=== PATIENT | female | born 1955 | race Caucasian/White ===

== ENCOUNTER 2018-05-31 12:33 | Outpatient (CLI) | payer BC ==
--- NOTE | 2018-05-31 12:58 | RAD ---
THREE VIEWS LEFT SHOULDER: COMPARISON: None. HISTORY: Left shoulder pain after falling down stairs. FINDINGS: Three views of the left shoulder show no evidence of acute fracture or dislocation. No degenerative changes are seen. The visualized left thorax is unremarkable. IMPRESSION: Unremarkable exam. POS: [facility]
== END 2018-05-31 12:34 | disposition home or self-care (01) ==
LOC: BICRAD 12:33
PROVIDERS: ATTEND Internal Medicine
DX: M25.512 Pain in left shoulder (principal)

== ENCOUNTER 2018-09-04 14:49 | Outpatient (CLI) | payer BC ==
--- NOTE | 2018-09-04 15:54 | RAD ---
Cervical spine 3 views HISTORY: Neck pain. FINDINGS: Vertebral body heights are maintained. Disc space narrowing and minimal degenerative retrol isthesis at the C5-6 level. And C6-7 levels. Cervicothoracic junction is intact. Osteophytosis most pronounced at the lowest 3 levels. No acute fracture, dislocation, or aggressive osseous erosions. IMPRESSION: Osseous degenerative spine.
--- NOTE | 2018-09-04 16:00 | RAD ---
THREE VIEWS RIGHT ANKLE: INDICATION: Pain of right ankle. FINDINGS: There is lateral ankle swelling. Mortise is intact. No fracture or dislocation identified. IMPRESSION: Lateral soft tissue swelling without acute fracture of right ankle. POS: OFF
--- NOTE | 2018-09-04 16:05 | RAD ---
LUMBAR SPINE RADIOGRAPH SERIES 2-3 VIEWS: 09/04/18 INDICATION: Low back pain, with sciatica, right sided. FINDINGS: There is a postoperative fusion spanning L4 and L5 with bilateral pedicle screws and vertical interco nnecting rods as well as interbody cage device. No hardware complication is evident on the two provid ed views. There is accentuation of the lumbar lordosis. Trace spondylolisthesis at L5-S1. There are c alcifications overlying the pelvis bilaterally indicative of phleboliths. IMPRESSION: 1. Postoperative lower lumbar spine. 2. Trace spondylolisthesis of L5-S1 present. POS: OFF
--- NOTE | 2018-09-04 16:08 | RAD ---
THREE VIEWS OF THE THORACIC SPINE: COMPARISON: None. HISTORY: Pain in the thoracic spine. FINDINGS: Three views of the thoracic spine show normal height and alignment of the vertebral bodies without fr acture or subluxation. There is narrowing of the intervertebral disks and moderate osteophytes in th e thoracic spine. IMPRESSION: Degenerative changes of the thoracic spine without acute osseous abnormality. POS: [facility]
== END 2018-09-04 14:50 | disposition home or self-care (01) ==
LOC: SCSRAD 14:49
PROVIDERS: ATTEND Physician Assistant
DX: M25.571 Pain in right ankle and joints of right foot (principal); M54.41 Lumbago with sciatica, right side; M54.6 Pain in thoracic spine; M54.2 Cervicalgia; M47.814 Spondylosis without myelopathy or radiculopathy, thoracic region; M43.17 Spondylolisthesis, lumbosacral region; S82.891A Other fracture of right lower leg, initial encounter for closed fracture; M47.812 Spondylosis without myelopathy or radiculopathy, cervical region; Z98.890 Other specified postprocedural states
CPT/HCPCS: 72040; 72072; 72100; 80048; 83970

== ENCOUNTER 2018-09-25 09:52 | Outpatient (CLI) | payer BC ==
--- NOTE | 2018-09-25 12:03 | ULT ---
BILATERAL RENAL ULTRASOUND: Date: 09/25/18 HISTORY: Chronic renal disease. FINDINGS: The right kidney measures 11.6 cm in length and the left kidney measures 11.1 cm in length. No hydron ephrosis seen on either side. Multiple small echogenic foci in the kidneys bilaterally are either due to vascular calcifications or nonobstructing calculi. The urinary bladder is unremarkable. IMPRESSION: 1. No evidence of high grade obstruction. 2. Vascular calcifications versus nonobstructing calculi in the kidneys. CT stone protocol would be helpful. POS: [facility]
== END 2018-09-25 09:53 | disposition home or self-care (01) ==
LOC: SCSULT 09:52
PROVIDERS: ATTEND Internal Medicine Nephrology
DX: N18.3 Chronic kidney disease, stage 3 (moderate) (principal)
CPT/HCPCS: 76770

== ENCOUNTER 2018-09-27 09:29 | Outpatient (CLI) | payer BC ==
--- NOTE | 2018-09-27 10:25 | BD ---
DEXA BONE DENSITY STUDY: Date: 09/27/18 HISTORY: 53-year-old postmenopausal female for screening for osteoporosis. FINDINGS: Bilateral Hips: BMD (g/cm2) Left Femoral Neck 0.992 T-Score: 1.3 Total Proximal Left Femur 1.084 T-Score: 1.2 Right Femoral Neck 0.9393 T-Score: 0.8 Total Proximal Right Femur 1.050 T-Score: 0.9 IMPRESSION: Normal bone mineral density. POS: [facility]
== END 2018-09-27 09:30 | disposition home or self-care (01) ==
LOC: BICMAMMO 09:29
PROVIDERS: ATTEND Internal Medicine
DX: Z13.820 Encounter for screening for osteoporosis (principal)
CPT/HCPCS: 77080

== ENCOUNTER 2019-01-08 10:23 | Outpatient (CLI) | payer BC | END 2019-01-08 10:24 | disposition home or self-care (01) | LOC: CTENTCT 10:23 | PROVIDERS: ATTEND Specialist | DX: J32.8 Other chronic sinusitis (principal) | CPT/HCPCS: 70486 ==

== ENCOUNTER 2019-01-15 17:40 | Emergency (ER) | payer BC ==
[2019-01-15] MEDS ORDERED: Dexamethasone 10 MG/ML VIAL ONE (18:41)
[2019-01-15] MEDS ORDERED: Morphine 10 MG/ML VIAL ONE (18:41)
== END 2019-01-15 18:50 | disposition home or self-care (01) ==
LOC: SCSER 17:40
DX: M54.41 Lumbago with sciatica, right side (principal)
CPT/HCPCS: 99283; J1100; J2270

== ENCOUNTER 2019-01-20 08:22 | Outpatient (CLI) | payer BC ==
--- NOTE | 2019-01-20 16:16 | NM ---
Radionucleotide parathyroid scan HISTORY: Primary hyperparathyroidism. FINDINGS: Early images show physiologic uptake of radiotracer throughout salivary glands and the thyr oid gland. Delayed images show appropriate washout of radiotracer from the thyroid gland. No residual foci of parathyroid uptake evident. Upper mediastinum was included in the imaging. IMPRESSION: No scintigraphic evidence of parathyroid adenoma.
== END 2019-01-20 08:23 | disposition home or self-care (01) ==
LOC: NM 08:22
PROVIDERS: ATTEND Specialist
DX: E21.0 Primary hyperparathyroidism (principal)
CPT/HCPCS: 78072; A9500

== ENCOUNTER 2019-02-03 11:57 | Outpatient (CLI) | payer BC ==
[~2019-02-03 11:57] MED LIST: Iopamidol 370 76% 100 ML VIAL ONE; Iopamidol 370 76% 50 ML VIAL FS ONE
--- NOTE | 2019-02-03 14:35 | CT ---
PRE AND POSTCONTRAST SOFT TISSUE NECK CT: HISTORY: Primary hyperparathyroidism. COMPARISON: None. CORRELATION: Nuclear medicine parathyroid scan 01/20/2019. TECHNIQUE: An abdomen and pelvic CT is performed with and without intravenous contrast administration. Multisequ ential, multiplanar imaging was performed. FINDINGS: Visualized paranasal sinuses are adequately aerated. Aerodigestive tract is patent. No mucosal abnorm ality. Midline fatty raphae of the tongue is preserved. No obvious masses in the oral cavity. Epiglottis has a normal caliber. Preepiglottic fat is preserved. Symmetric attenuation of the parotid and submandibular glands. Appropriate attenuation of the thyroid gland. No evidence of lymphadenopathy by size criteria. The great vessels of the neck are patent. Cervical spine vertebral body height is maintained. No fracture. Mild degenerative disc disease at th e C5-C6 and C6-C7. Moderate to severe right neural foraminal narrowing at C5-C6 and C6-C7 due to uncovertebral hypertrophy. Evaluation is limited by technique. Effacement of the right fossa of Rosenmuller is nonspecific. Direct visualization is recommended. Upper mediastinum and lung apices are unremarkable. In the right tracheoesophageal groove (C6-C7 disc space level), there is an intrinsically hypodense l esion which does demonstrate enhancement on the postcontrast images, measuring 0.6 cm. A small parathyroid adenoma may be present. Correlation made with recent nuclear medicine imaging does not de monstrate a scintigraphic correlate. Lack of radiotracer localization may be due to the overall small size of the adenoma. IMPRESSION: Possible right parathyroid adenoma without definite scintigraphic uptake. Evaluation is limited by si ze. This possible adenoma is noted at the C6-C7 disc space level. Correlate with parathyroid levels.
== END 2019-02-03 11:58 | disposition home or self-care (01) ==
LOC: CT 11:57
PROVIDERS: ATTEND Specialist
DX: E21.0 Primary hyperparathyroidism (principal); D35.1 Benign neoplasm of parathyroid gland
CPT/HCPCS: 70492; 82565; Q9967

== ENCOUNTER 2019-07-09 03:50 | Observation (INO) | payer BC ==
[2019-07-09] MEDS ORDERED: Nitroglycerin 2% Ointment 1 INCH/1 GM Packet ONE (04:13)
[2019-07-09] MEDS ORDERED: Ondansetron PF 4 MG/2 ML Vial IVP PRN (04:46)
[2019-07-09] MEDS ORDERED: cloNIDine 0.1 MG TAB PO PRN (04:46)
[2019-07-09] MEDS ORDERED: Promethazine HCl 12.5 MG in Sodium Chloride 0.9% 50 ML IVPB PRN (04:46)
[2019-07-09] MEDS ORDERED: hydrALAZINE 20 MG/ML VIAL SLOW IVP PRN (04:46)
[2019-07-09] MEDS ORDERED: Morphine 2 MG/ML SYRINGE SLOW IVP PRN (04:46)
--- NOTE | 2019-07-09 04:55 | PDOC.HHP ---
Hospitalist HPI - History of Present Illness Chest pain History of Present Illness: Patient is a 64 year old female with PMH hyperparathyroidism, hypercalcemia, djd , kidney stones who presents to ED for chest pain which began at 1am and woke patient from sleep, she reports it is a very sharp pain in R upper chest radiating down R arm with radiations to jaw and face, patient reports nitro has not improved but patch was just put on. She has had similar chest pains on and off for last 2 years, saw Dr Webster late 2018 and had a stress test, echo etc and she reports was all normal however she was going to have a heart cath soon due to persistence of chest pain, however has been postponed given recent current events and pandemic. She takes an ASA every day. She has hyperparathyroidism and was to see a surgeon tomorrow about removal of parathyroids. she denies SOB, reports some intermittent pedal edema which is not present, denies stable angina. No fevers or sick contacts, denies other complaints at this time. Hospitalist ROS - Review of Systems Constitutional: denies: fever, chills, sweats, weakness, malaise, other Eyes: denies: pain, vision change, conjunctivae inflammation, eyelid inflammation, redness, other ENT: denies: ear pain, ear discharge, nose pain, nose discharge, nose congestion , mouth pain, mouth swelling, throat pain, throat swelling, other Respiratory: denies: cough, dry, shortness of breath, hemoptysis, SOB with excertion, pleuritic pain, sputum, wheezing, other Cardiovascular: reports: chest pain, edema. denies: palpitations, orthopnea, paroxysmal noc. dyspnea, light headedness, other Gastrointestinal: denies: nausea, vomiting, abdominal pain, diarrhea, constipation, melena, hematochezia, other Genitourinary: denies: dysuria, frequency, incontinence, hematuria, retention, other Musculoskeletal: reports: neck pain, arm pain Skin: denies: rash, lesions, [place], bruising, other Neurological: denies: weakness, numbness, incoordination, change in speech, confusion, seizures, other All other systems reviewed; all pertinent +/- noted in HPI/Subj Hospitalist History - Past Medical History Other Medical History: hyperparathyroidism hypercalcemia djd chest pain recurrent kidney stones - Past Surgical History Other Surgical History: hysterectomy laminectomy and fusion toe surgery - Family History Other Family History: mother with cva, brain aneurysm, htn, breast cancer - Social History Smoking Status: Never smoker Alcohol: reports: None Drugs: reports: none - Exam General Appearance: NAD, awake alert Hospitalist Results - EKG Interpretation EKG: nsr rate 63 pr 214 qtc [address] changes Hospitalist H&P A/P - Plan Plan: Patient is a 64 year old female admitted for: # chest pain # 1st degree avb recurrent chest pain, negative stress test, no St changes on EKG, was to have heart cath by Dr Webster at some point soon due to recurrent chest pain despite negative stress - admit to telemetry obs - npo - consult dr webster - beta cristal, asa, nitropatch, statin - resume home meds once med rec complete # history of hyperparathyroidism, hyperalcemia - see surgeon once medically stable, likely as outpatient - trend BMP
[2019-07-09 05:33] VITALS: BMI 27.2
[2019-07-09] MEDS: Acetaminophen 325 MG TAB PO PRN ×3 (05:36→21:04)
[2019-07-09 05:56] LABS: #Basophils 0.1 thou/uL (0.0-0.2); #Eosinphils 0.1 thou/uL (0.0-0.7); #Lymphocytes 2.1 thou/uL (1.20-3.40); #Monocytes 0.5 thou/uL (0.11-0.59); #Neutrophils 2.5 thou/uL (1.40-6.50); %Basophils 1.2 % (0.0-1.0); %Eosinophils 1.8 % (0.0-10.0); %Lymphocytes 40.2 % (21.0-51.0); %Monocytes 8.7 % (0.0-10.0); Mean Corpuscular HGB CONC 32.3 g/dL (32.0-36.0); Mean Corpuscular Hemoglobin 29.5 pg (27.0-31.0); Mean Corpuscular Volume 91.2 fL (78.0-98.0); Mean Platelet Volume 7.6 fL (7.4-10.4); Platelet Count 208 thou/uL (130-400); RBC Distribution Width 12.9 % (11.5-14.5); White Blood Cell (WBC) Count 5.3 thou/uL (4.8-10.8)
[2019-07-09 06:02] LABS: Prothrombin Time 12.9 sec (12.0-14.7)
[2019-07-09 06:11] LABS: ALT (SGPT) 21 U/L (8-55); AST (SGOT) 23 U/L (5-34); Albumin 4.1 g/dL (3.4-4.8); Alkaline Phosphatase 84 U/L (40-110); Anion Gap 12 mmol/L (10-20); BUN (Urea Nitrogen) 13 mg/dL (9.8-20.1); Bilirubin, Direct 0.2 mg/dL (0.1-0.3); Bilirubin, Total 0.5 mg/dL (0.2-1.2); Calc. Creatinine Clearance 84 mL/min (70-130); Calcium 9.8 mg/dL (7.8-10.44); Carbon Dioxide 24 mmol/L (23-31); Chloride 108 mmol/L (98-107); Estimated GFR-MDRD 66; Glucose 98 mg/dL (80-115); Magnesium 2.1 mg/dL (1.6-2.6); Phosphorus 3.4 mg/dL (2.3-4.7); Potassium 4.3 mmol/L (3.5-5.1); Protein, Total 6.5 g/dL (6.0-8.3); Sodium 140 mmol/L (136-145)
[2019-07-09 06:15] LABS: Troponin I Less than 0.010 ng/mL (< 0.028)
[2019-07-09] MEDS: Nitroglycerin 2% Ointment 1 INCH/1 GM Packet TOP SCH ×3 (07:04→21:10)
[2019-07-09] MEDS ORDERED: Nitroglycerin 0.4 MG TAB (25 Tab Bottle) ONE (08:14)
[2019-07-09] MEDS ORDERED: Enoxaparin Sodium 40 MG/0.4 ML SYRINGE SC SCH (09:00)
[2019-07-09] MEDS: Aspirin Chewable 81 MG TAB PO SCH (09:26)
[2019-07-09] MEDS: Polyethylene Glycol 3350 17 GM Packet PO SCH (09:27)
[2019-07-09] MEDS: clonazePAM 0.5 MG TAB PO PRN ×2 (09:27→21:04)
[2019-07-09] MEDS: Famotidine 20 MG TAB PO SCH ×2 (09:27→21:04)
[2019-07-09] MEDS ORDERED: Communication Order-Pharmacy FS SCH (13:15)
[2019-07-09] MEDS: Metoprolol Tartrate 25 MG TAB PO SCH ×2 (14:07→21:04)
[2019-07-09] MEDS: Sodium Chloride 0.9% 1,000 ML IV SCH ×2 (15:04→21:03)
--- NOTE | 2019-07-09 17:24 | CON ---
DATE OF CONSULTATION: 07/09/2019 REASON FOR CONSULTATION: Chest pain. HISTORY OF PRESENT ILLNESS: Ms. Thomason is a pleasant 64-year-old white female, who comes to the hospital for chest pain. She came in for worsening chest pain. She says that the chest pain is constant. She was concerned so she came in. So far she has been ruled out with negative enzymes and normal EKG. She actually is a patient of mine whom I have been following for the last 2 years. She has had normal stresses and echoes in the past, but she continues to have episodes of chest pains actually, scheduled to have a heart catheterization about 2 weeks from now. She also has hypercalcemia with hyperparathyroidism and is scheduled to have a parathyroidectomy. She is in the hospital now with ongoing chest pain. PAST MEDICAL HISTORY: 1. Hyperparathyroidism. 2. Hypercalcemia. 3. DJD. 4. Chest pain, which is recurrent and constant. 5. Kidney stones. SURGICAL HISTORY: 1. Hysterectomy. 2. Laminectomy infusion. 3. Toe surgery. FAMILY HISTORY: Mother with CVA, aneurysms, hypertension, and breast cancer. SOCIAL HISTORY: No alcohol, tobacco, or drugs. OUTPATIENT MEDICATIONS: 1. Clonazepam p.r.n. 2. Lamisil. 3. Lamotrigine. 4. Atorvastatin 40 mg a day. 5. Aspirin 81 a day. 6. Levothyroxine 50 mcg a day. 7. Losartan 25 mg a day. ALLERGIES: PENICILLIN. REVIEW OF SYSTEMS: A 12-point review of systems was done and was all negative unless stated in the history of present illness. PHYSICAL EXAMINATION: VITAL SIGNS: Temperature 97.8, pulse 64, respiratory rate 18, saturating 96% on room air, blood pressure 106/55. GENERAL: Awake, alert, and oriented x3, in no distress. HEENT: Normocephalic, atraumatic. NECK: Supple. LUNGS: Clear. CARDIOVASCULAR: S1 and S2. No S3 or S4. No murmurs. ABDOMEN: Soft. Positive bowel sounds. EXTREMITIES: No edema. SKIN: Warm and dry. LABORATORY DATA: Laboratory work was reviewed. CBC with white count of 5, hemoglobin 13, hematocrit 40, and platelet count of 208. Coags were normal. Chemistries were unremarkable. Troponins were negative x2. ASSESSMENT: Ongoing chest pain. PLAN: 1. We have originally planned a heart catheterization, so we will just do it as an inpatient. Currently, she has continued to have chest pain which is atypical in nature. She has been ruled out but we need to further risk stratify. We will plan on doing this tomorrow. We will leave n.p.o. post midnight and plan on doing this tomorrow probably around noon. We spoke at length the risks and benefits of the procedure. Risks included but not limited to stroke, [place], , need for blood transfusion, limb loss, organ loss. The patient understands, verbalized understanding of this and agrees to proceed. We also spoke about conscious sedation, which she agrees. We also spoke about bare metal versus drug-eluting stent. We will do bare metal stent so she needs a parathyroidectomy only if we need to stent. 2. Further recommendations per results of coronary angiogram. 3. Right femoral approach given her high anxiety at this time. Job ID: [id number]
[2019-07-09] MEDS ORDERED: Nitroglycerin 0.4 MG TAB (25 Tab Bottle) SL PRN (17:48)
[2019-07-09] MEDS ORDERED: Atorvastatin Calcium 40 MG TAB PO SCH (21:00)
[2019-07-09] MEDS ORDERED: lamoTRIgine 100 MG TAB PO SCH (21:30)
[2019-07-10 04:48] LABS: #Eosinphils 0.1 thou/uL (0.0-0.7); #Lymphocytes 2.1 thou/uL (1.20-3.40); #Monocytes 0.5 thou/uL (0.11-0.59); #Neutrophils 2.5 thou/uL (1.40-6.50); %Basophils 0.4 % (0.0-1.0); %Eosinophils 1.9 % (0.0-10.0); %Monocytes 9.3 % (0.0-10.0); %Neutrophils 47.4 % (42.0-75.0); Hemoglobin 12.3 g/dL (12.0-16.0); Mean Corpuscular HGB CONC 32.8 g/dL (32.0-36.0); Mean Corpuscular Hemoglobin 30.3 pg (27.0-31.0); Mean Corpuscular Volume 92.6 fL (78.0-98.0); Mean Platelet Volume 7.7 fL (7.4-10.4); Platelet Count 176 thou/uL (130-400); RBC Distribution Width 12.8 % (11.5-14.5); Red Blood Cell (RBC) Count 4.06 mill/uL (4.20-5.40); White Blood Cell (WBC) Count 5.2 thou/uL (4.8-10.8)
[2019-07-10 04:54] LABS: Prothrombin Time 12.8 sec (12.0-14.7)
[2019-07-10 05:11] LABS: Anion Gap 10 mmol/L (10-20); BUN (Urea Nitrogen) 11 mg/dL (9.8-20.1); Calc. Creatinine Clearance 90 mL/min (70-130); Carbon Dioxide 23 mmol/L (23-31); Chloride 110 mmol/L (98-107); Estimated GFR-MDRD 72; Glucose 89 mg/dL (80-115); Potassium 4.3 mmol/L (3.5-5.1); Sodium 139 mmol/L (136-145)
[2019-07-10] MEDS: Nitroglycerin 2% Ointment 1 INCH/1 GM Packet TOP SCH ×2 (05:17→13:28)
[2019-07-10] MEDS: Aspirin Chewable 81 MG TAB PO SCH (05:17)
[2019-07-10] MEDS: Metoprolol Tartrate 25 MG TAB PO SCH (05:17)
[2019-07-10] MEDS: Polyethylene Glycol 3350 17 GM Packet PO SCH (05:17)
[2019-07-10] MEDS: Famotidine 20 MG TAB PO SCH (05:17)
[2019-07-10] MEDS ORDERED: Iopamidol 370 76% 100 ML VIAL ONE (11:32)
[2019-07-10] MEDS ORDERED: Fentanyl 100 MCG/2 ML VIAL ONE (12:09)
[2019-07-10] MEDS ORDERED: Midazolam HCl 2 mg/2 ml Vial ONE (12:09)
[2019-07-10] MEDS ORDERED: Acetaminophen/Codeine 30-300mg Tablet PO PRN (12:41)
[2019-07-10] MEDS ORDERED: Sodium Chloride 0.9% 500 ML IV SCH (12:45)
[2019-07-10] MEDS: clonazePAM 0.5 MG TAB PO PRN (13:09)
[2019-07-10 15:53] VITALS: BP 140/64; TEMP 97.8
--- NOTE | 2019-07-10 19:18 | DIS ---
DATE OF ADMISSION: 07/10/2019 DATE OF DISCHARGE: 07/10/2019 DISCHARGE DISPOSITION AND FOLLOWUP: The patient was discharged home in stable condition. The patient was seen and examined on the day of discharge. Denies any new complaints. INPATIENT CONSULT: Cardiology. CLINICAL COURSE: The patient is a 64-year-old female with past medical history of hyperparathyroidism, hypercalcemia, DJD, kidney stones, and intermittent history of chest pain with an abnormal stress test. The pain that she describes coming in was a very sharp pain in her right upper chest radiating down her right arm with radiations to her jaw and face. Stated the nitroglycerin had not improved her pain. She is a patient of Dr. Webster and has seen him for the past two years. He was consulted to see her while here in the hospital and performed a heart catheterization. The heart cath was unremarkable and he gave the recommendation to continue on her aspirin and statin daily. She denies any chest pain at the time of discharge and will be discharged on her regular home medications. FINAL DIAGNOSES: Chest pain, hyperparathyroidism, hypertension. DISCHARGE MEDICATIONS: 1. Aspirin 81 mg p.o. daily. 2. Lipitor 40 mg p.o. at bedtime. 3. Lamotrigine 200 mg p.o. at bedtime. 4. Clonazepam 0.5 mg p.o. at bedtime. 5. Synthroid 50 mcg p.o. daily. 6. Losartan potassium 25 mg p.o. daily. 7. Lamisil 250 mg p.o. at bedtime. DISCHARGE INSTRUCTIONS: The patient was encouraged to follow up with Dr. Webster as needed in the future and to follow up with Dr. Graciela Danielle within the next seven days. She is also encouraged to take her medications as prescribed. TIME SPENT: Total time coordinating the discharge of this patient was 25 minutes. Job ID: [id number] MTDD
[2019-07-10] MEDS ORDERED: lamoTRIgine 100 MG TAB PO SCH (21:00)
--- NOTE | 2019-07-12 13:22 | EKG ---
Test Reason : Blood Pressure : / mmHG Vent. Rate : 064 BPM Atrial Rate : 064 BPM P-R Int : 206 ms QRS Dur : 080 ms QT Int : 398 ms P-R-T Axes : 033 010 018 degrees QTc Int : 410 ms Poor data quality, interpretation may be adversely affected Normal sinus rhythm Confirmed by YOBANY DOHERTY ([id number]), associate editor WILLIAM TERRY ([id number] on 07/12/2019 1:22:34 PM Referred By: Confirmed By:YOBANY DOHERTY
== END 2019-07-10 20:26 | disposition home or self-care (01) ==
LOC: ERS 03:50 → 2NO 04:30
PROVIDERS: ADMIT Internal Medicine; ATTEND Internal Medicine
PROC: 4A023N7 Measurement of Cardiac Sampling and Pressure, Left Heart, Percutaneous Approach (ICD-10-PCS; principal; 2019-07-10)
PROC: B2111ZZ Fluoroscopy of Multiple Coronary Arteries using Low Osmolar Contrast (ICD-10-PCS; 2019-07-10)
DX: R07.89 Other chest pain (principal); I25.10 Atherosclerotic heart disease of native coronary artery without angina pectoris; E21.3 Hyperparathyroidism, unspecified; I10 Essential (primary) hypertension; M81.0 Age-related osteoporosis without current pathological fracture; F12.11 Cannabis abuse, in remission; M19.90 Unspecified osteoarthritis, unspecified site; I44.0 Atrioventricular block, first degree; Z87.891 Personal history of nicotine dependence; Z79.82 Long term (current) use of aspirin; Z79.899 Other long term (current) drug therapy; Z88.0 Allergy status to penicillin; Z98.1 Arthrodesis status
CPT/HCPCS: 36415; 80048; 83735; 84100; 85025; 85610; 93005; 93010; 93458; 96361; 96372; 96374; 96375; 99152; C1769; G0378; J1644; J1650; J2250; J2270; J2405; J3010; Q9967

== ENCOUNTER 2019-12-01 12:36 | Outpatient (CLI) | payer BC ==
[2019-12-01 19:09] LABS: ALT (SGPT) 35 U/L (8-55); AST (SGOT) 29 U/L (5-34); Albumin 4.8 g/dL (3.4-4.8); Alkaline Phosphatase 103 U/L (40-110); Anion Gap 12 mmol/L (10-20); BUN (Urea Nitrogen) 18 mg/dL (9.8-20.1); Bilirubin, Total 0.9 mg/dL (0.2-1.2); Calc. Creatinine Clearance 0 mL/min (70-130); Calcium 10.4 mg/dL (7.8-10.44); Carbon Dioxide 28 mmol/L (23-31); Chloride 103 mmol/L (98-107); Estimated GFR-MDRD 57; Globulin 2.6 g/dL (2.4-3.5); Glucose 89 mg/dL (80-115); Potassium 4.1 mmol/L (3.5-5.1); Protein, Total 7.4 g/dL (6.0-8.3); Sodium 139 mmol/L (136-145)
--- NOTE | 2019-12-02 09:10 | MRI ---
MRI ABDOMEN WITH AND WITHOUT IV CONTRAST AND MRCP: HISTORY: Abnormal CT scan. COMPARISON: Correlation is made with the CT scan of 10/24/2019. FINDINGS: There are cysts noted in the solid organs including the liver (8 mm left lobe, spleen (17 mm), and ki dneys (15 mm on the right and 7 mm on the left). There is a 9 mm focal enhancing lesion in the posterior segment of the right lobe of the liver seen o nly on the initial arterial image. This was not visualized on the T2 sequence as well as the delayed sequences. There is mild intrahepatic biliary ductal dilatation, particularly in the left lobe. Th e common bile duct is dilated measuring up to 1 cm. The pancreas and adrenal glands are normal. No cholelithiasis or choledocholithiasis is identified. No free fluid or lymphadenopathy is seen. The aorta is of normal caliber. The bone marrow signal is normal. IMPRESSION: 1. Biliary ductal dilatation without evidence of cholelithiasis or choledocholithiasis. ERCP would be helpful. 2. Cysts in the liver, spleen, and kidneys. 3. A 9 mm hyperenhancing focus in the right lobe of the liver. Differential diagnosis includes a fl yue-filling hemangioma, hypervascular neoplasm (primary or secondary). POS: OFF
== END 2019-12-01 12:37 | disposition home or self-care (01) ==
LOC: SCSMRI 12:36
PROVIDERS: ATTEND Internal Medicine Gastroenterology
DX: K21.9 Gastro-esophageal reflux disease without esophagitis (principal); E83.52 Hypercalcemia; R77.0 Abnormality of albumin; K58.9 Irritable bowel syndrome, unspecified; R13.19 Other dysphagia; R93.89 Abnormal findings on diagnostic imaging of other specified body structures; R10.84 Generalized abdominal pain; N28.1 Cyst of kidney, acquired; K76.89 Other specified diseases of liver; D73.4 Cyst of spleen; K83.8 Other specified diseases of biliary tract; Z86.010 Personal history of colon polyps
CPT/HCPCS: 74183; 80053

== ENCOUNTER 2020-06-08 11:32 | Outpatient (CLI) | payer BC ==
[~2020-06-08 11:32] MED LIST changes: -Iopamidol 370 76% 100 ML VIAL ONE; -Iopamidol 370 76% 50 ML VIAL FS ONE; +Magnevist 469MG/ML 20 ML VIAL ONE
== END 2020-06-08 11:33 | disposition home or self-care (01) ==
LOC: MRI 11:32
PROVIDERS: ATTEND Physician Assistant Medical
DX: R74.01 Elevation of levels of liver transaminase levels (principal); R93.89 Abnormal findings on diagnostic imaging of other specified body structures
CPT/HCPCS: 74183; 82565; A9579